=== PATIENT | male | born 1960 | race Two or more races ===

== ENCOUNTER 2025-03-01 18:15 | Inpatient (IN) | payer MEDICARE, OTHER ==
[~2025-03-01] VITALS: Ht 167.6 cm; Wt 65.8 kg
[2025-03-01 19:13] LABS: CALCIUM, SERUM 9.2 mg/dL (8.5-10.1); CREATININE 0.7 mg/dL (0.6-1.3); SODIUM SERUM 137 mmol/L (136-145); UREA NITROGEN, BLOOD 13 mg/dL (7-18)
[2025-03-01 19:19] LABS: ALCOHOL, BLOOD < 3 mg/dL (0-10); ASPARTATE AMINOTRANSFERASE 24 U/L (15-37); TOTAL PROTEIN, SERUM 6.7 g/dL (6.4-8.2)
[2025-03-01 19:20] LABS: PLATELET COUNT (AUTO) 171 K/uL (150-450); RED BLOOD CELL COUNT(AUTO) 4.83 MIL/uL (4.5-6.0); RED CELL DISTRIBUTION WIDTH 13.4 % (11.5-15.0); WHITE BLOOD COUNT (AUTO) 4.8 K/uL (4.3-11.0)
[2025-03-01 20:33] LABS: APPEARANCE,URINE CLEAR (CLEAR); BLOOD, URINE NEGATIVE Ery/uL (NEGATIVE); LEUKOCYTE ESTERASE ,URINE NEGATIVE (NEGATIVE); NITRITE, URINE NEGATIVE (NEGATIVE); UGLUCOSE NEGATIVE (NEGATIVE)
[2025-03-01 20:40] LABS: AMPHETAMINE, URINE NEGATIVE (NEGATIVE); BARBITURATE, URINE NEGATIVE (NEGATIVE); CANNABINOID, URINE NEGATIVE (NEGATIVE); COCCAINE, URINE NEGATIVE (NEGATIVE); OPIATE, URINE NEGATIVE (NEGATIVE)
[2025-03-01 20:58] LABS: BENZODIAZEPINE, URINE NEGATIVE (NEGATIVE)
[2025-03-01] MEDS ORDERED: ACETAMINOPHEN 325 MG TABLET PO PRN (21:30)
[2025-03-01] MEDS ORDERED: LORAZEPAM 1 MG TABLET PO PRN (21:30)
[2025-03-01] MEDS ORDERED: MAG HYDROX/AL HYDROX/SIMETH 30 ML UDC PO PRN (21:30)
[2025-03-01] MEDS ORDERED: MAGNESIUM HYDROXIDE 30 ML UDC PO PRN (21:30)
[2025-03-01] MEDS: BLOOD SUGAR DIAGNOSTIC 1 EACH STRIP IN ONE (22:18)
[2025-03-02] MEDS: TEMAZEPAM 7.5 MG CAPSULE PO PRN (00:53)
[2025-03-02 02:22] VITALS: BP 124/74; TEMP 97.9; O2SAT 97
[2025-03-02] MEDS ORDERED: QUET100T PO (04:51)
[2025-03-02] MEDS ORDERED: ESCI5TAB PO (04:51)
[2025-03-02] MEDS ORDERED: VITS5OIN2 TP (04:51)
[2025-03-02] MEDS ORDERED: ATOR10TA PO (04:51)
[2025-03-02] MEDS ORDERED: BENZ1TAB7 PO (04:51)
[2025-03-02] MEDS ORDERED: ATEN-170 PO (04:51)
[2025-03-02 07:59] LABS: ASPARTATE AMINOTRANSFERASE 24.0 U/L (15-37); CALCIUM, SERUM 9.2 mg/dL (8.5-10.1); CREATININE 0.7 mg/dL (0.6-1.3); SODIUM SERUM 139.0 mmol/L (136-145); TOTAL PROTEIN, SERUM 6.8 g/dL (6.4-8.2); UREA NITROGEN, BLOOD 12.0 mg/dL (7-18)
[2025-03-02 08:02] LABS: LDL 44 mg/dL (0-99)
[2025-03-02 08:34] VITALS: BP 136/71; TEMP 98; O2SAT 99
[2025-03-02] MEDS: BENZTROPINE MESYLATE (1 MG) 1 MG TABLET PO SCH (12:06)
[2025-03-02] MEDS: ATENOLOL 25 MG TABLET PO SCH (12:06)
[2025-03-02 16:13] VITALS: BP 125/78; TEMP 97.8; O2SAT 98
[2025-03-02 19:50] VITALS: BP 134/79; TEMP 97.8; O2SAT 98
[2025-03-02] MEDS: ATORVASTATIN 10 MG TABLET PO SCH (21:21)
[2025-03-03 08:00] VITALS: BP 126/68; TEMP 98.7; O2SAT 100
[2025-03-03] MEDS: SERTRALINE HCL 25 MG TABLET PO SCH (08:09)
[2025-03-03] MEDS ORDERED: OLANZAPINE 10 MG VIAL IM PRN (11:00)
[2025-03-03 15:55] VITALS: BP 107/89; TEMP 98.7; O2SAT 98
[2025-03-03 19:47] VITALS: BP 113/69; TEMP 98.9; O2SAT 98
[2025-03-04 08:00] VITALS: BP 117/84; TEMP 97.9; O2SAT 94
[2025-03-04] MEDS: ERYTHROMYCIN BASE OPHTH 3.5 GM TUBE RIGHTEYE SCH (08:43)
[2025-03-04 16:00] VITALS: BP 120/72; TEMP 98; O2SAT 98
[2025-03-04 19:58] VITALS: BP 134/84; TEMP 98; O2SAT 100
[2025-03-04] MEDS: TEMAZEPAM 7.5 MG CAPSULE PO PRN (22:45)
[2025-03-05 08:00] VITALS: BP 123/82; TEMP 98; O2SAT 100
[2025-03-05 16:00] VITALS: BP 120/84; TEMP 98; O2SAT 100
[2025-03-05 21:30] VITALS: BP 102/72; TEMP 98.2; O2SAT 99
[2025-03-06 08:00] VITALS: BP 100/69; TEMP 97.8; O2SAT 100
[2025-03-06 16:00] VITALS: BP 99/64; TEMP 98.2; O2SAT 98
[2025-03-06 21:12] VITALS: BP 108/66; TEMP 97.7; O2SAT 100
[2025-03-07 08:00] VITALS: BP 112/73; TEMP 97.8; O2SAT 96
[2025-03-07 16:00] VITALS: BP 118/72; TEMP 98; O2SAT 98
[2025-03-07 20:46] VITALS: BP 110/63; TEMP 97.7; O2SAT 97
[2025-03-08 08:00] VITALS: BP 107/76; TEMP 98.8; O2SAT 97
[2025-03-08 16:00] VITALS: BP 115/73; TEMP 98.2; O2SAT 99
[2025-03-08 20:01] VITALS: BP 120/98; TEMP 98; O2SAT 98
[2025-03-09 08:00] VITALS: BP 122/79; TEMP 97.8; O2SAT 100
[2025-03-09 16:10] VITALS: BP 117/74; TEMP 97.5; O2SAT 98
[2025-03-09 19:57] VITALS: BP 129/76; TEMP 98.5; O2SAT 98
[2025-03-10] MEDS: LORAZEPAM 1 MG TABLET PO PRN (04:16)
[2025-03-10 08:00] VITALS: BP 142/84; TEMP 98.1; O2SAT 98
[2025-03-10 16:00] VITALS: BP 108/72; TEMP 98; O2SAT 96
[2025-03-11 16:00] VITALS: BP 129/75; TEMP 97.5; O2SAT 100
[2025-03-11 20:01] VITALS: BP 106/68; TEMP 97.7; O2SAT 99
[2025-03-12 08:00] VITALS: BP 95/67; TEMP 98; O2SAT 100
[2025-03-12] MEDS: SERTRALINE HCL 25 MG TABLET PO SCH (08:21)
[2025-03-12 15:53] VITALS: BP 106/71; TEMP 97.9; O2SAT 100
[2025-03-12 20:39] VITALS: BP 126/81; TEMP 97.8; O2SAT 100
[2025-03-13 08:00] VITALS: BP 115/94; TEMP 97.8; O2SAT 97
[2025-03-13 16:00] VITALS: BP 116/70; TEMP 98; O2SAT 99
[2025-03-13 20:59] VITALS: BP 102/69; TEMP 97.9; O2SAT 99
[2025-03-14 08:00] VITALS: BP 116/71; TEMP 98.1; O2SAT 99
[2025-03-14 16:00] VITALS: BP 108/69; TEMP 98; O2SAT 98
[2025-03-14 20:21] VITALS: BP 109/71; TEMP 98.4; O2SAT 99
[2025-03-15 08:00] VITALS: BP 97/60; TEMP 98.6; O2SAT 100
[2025-03-15 16:00] VITALS: BP 121/70; TEMP 97.8; O2SAT 99
== END 2025-03-15 16:40 | DRG 885 ==
LOC: ER 18:25 → GPS 20:55
PROVIDERS: ADMIT Psychiatry & Neurology Psychiatry
DX: F20.0 Paranoid schizophrenia (principal); I42.9 Cardiomyopathy, unspecified; F29 Unspecified psychosis not due to a substance or known physiological condition; E78.5 Hyperlipidemia, unspecified; F32.A Depression, unspecified; N40.0 Benign prostatic hyperplasia without lower urinary tract symptoms; Z20.822 Contact with and (suspected) exposure to COVID-19; Z73.6 Limitation of activities due to disability; E03.9 Hypothyroidism, unspecified; J44.9 Chronic obstructive pulmonary disease, unspecified; F41.9 Anxiety disorder, unspecified; G47.00 Insomnia, unspecified; Z91.199 Patient's noncompliance with other medical treatment and regimen due to unspecified reason; I10 Essential (primary) hypertension; H57.89 Other specified disorders of eye and adnexa
CPT/HCPCS: 36415; 80048-TC; 80053-TC; 80061-TC; 80076-TC; 82962-TC; 85025-TC; 87081-TC; 97110-TC; 97116-TC; 97530-TC; G0480